=== PATIENT | female | born 1970 | race Caucasian/White ===

== ENCOUNTER 2018-08-31 12:15 | Inpatient (IN) | payer OTHER ==
[~2018-08-31] VITALS: Ht 160 cm; Wt 62.6 kg
[2018-08-31] MEDS ORDERED: SYNTHROID137 MCG PO (15:45)
== END 2018-09-06 19:00 | DRG 357 ==
LOC: OB/GYN 09-02 05:45 → O/R 09-02 05:45 → RECOVERY 09-02 09:45 → OB/GYN 09-02 14:25
PROVIDERS: Obstetrics & Gynecology Gynecologic Oncology
PROC: 07TC4ZZ Resection of Pelvis Lymphatic, Percutaneous Endoscopic Approach (ICD-10-PCS; 2018-09-02)
PROC: 0UT74ZZ Resection of Bilateral Fallopian Tubes, Percutaneous Endoscopic Approach (ICD-10-PCS; 2018-09-02)
PROC: 07T Lymphatic and Hemic Systems, Resection (ICD-10-PCS; 2018-09-02)
PROC: 0UT24ZZ Resection of Bilateral Ovaries, Percutaneous Endoscopic Approach (ICD-10-PCS; 2018-09-02)
PROC: 0UT94ZZ Resection of Uterus, Percutaneous Endoscopic Approach (ICD-10-PCS; principal; 2018-09-02 09:45)
DX: C19 Malignant neoplasm of rectosigmoid junction (principal); C77.5 Secondary and unspecified malignant neoplasm of intrapelvic lymph nodes; C79.62 Secondary malignant neoplasm of left ovary; C79.61 Secondary malignant neoplasm of right ovary; N84.0 Polyp of corpus uteri; D25.2 Subserosal leiomyoma of uterus